=== PATIENT | female | born 1950 | race Caucasian/White ===

== ENCOUNTER → 2016-08-13 | Outpatient (CLI) | payer OTHER ==
[~2016-08-13] MED LIST: BUPROPION XL150 MG PO; DITROPAN5 MG PO; LIPITOR40 MG PO; LISINOPRIL-HCTZ1 T14 PO; OMEPRAZOLE20 M1 PO; SYNTHROID125 PO
== END | disposition home or self-care (01) ==
LOC: CSSDAY 13:05
DX: M81.0 Age-related osteoporosis without current pathological fracture (principal)
CPT/HCPCS: 82310; 96372; J0897